=== PATIENT | male | born 1965 | race African-American/Black ===

== ENCOUNTER 2017-08-12 15:50 | Emergency (ER) | payer OTHER ==
[~2017-08-12] VITALS: Ht 185.4 cm; Wt 104.3 kg
[2017-08-12] MEDS ORDERED: HYDROXYZINE HCL25 M1 PO (16:00)
[2017-08-12] MEDS ORDERED: JANUVIA25 MG PO (16:00)
[2017-08-12] MEDS ORDERED: NEURONTIN 300M300 M2 PO (16:00)
[2017-08-12] MEDS ORDERED: BACTRIM DS TAB1 EACH PO (17:34)
[2017-08-12 17:46] VITALS: BP 110/83
== END 2017-08-12 17:48 | disposition home or self-care (01) ==
LOC: M.ERS 15:50
DX: S80.922A Unspecified superficial injury of left lower leg, initial encounter (principal); E78.5 Hyperlipidemia, unspecified; F41.9 Anxiety disorder, unspecified; X58.XXXA Exposure to other specified factors, initial encounter; Y93.89 Activity, other specified; Y92.89 Other specified places as the place of occurrence of the external cause; Y99.8 Other external cause status